=== PATIENT | female | born 1965 | race African-American/Black ===

== ENCOUNTER 2017-01-26 15:00 | Observation (INO) | payer OTHER ==
[~2017-01-26] VITALS: Ht 165.1 cm; Wt 49.9 kg
[2017-01-26 15:38] LABS: BASO % 1 % (0-3); EOS # 0.1 x10^3/uL (0.0-0.7); EOS % 3 % (0-3); HEMATOCRIT 32.6 % (36.0-47.0); HEMOGLOBIN 10.6 g/dL (12.0-15.5); LYMPH # 1.1 x10^3/uL (1.0-4.8); LYMPH % 33 % (24-48); MEAN CORPUSCULAR HEMOGLOBIN 27 pg (25-35); MEAN CORPUSCULAR HGB CONC 33 g/dL (31-37); MEAN CORPUSCULAR VOLUME 82 fL (79-100); MONO # 0.4 x10^3/uL (0.0-1.1); MONO % 10 % (0-9); NEUT # 1.8 x10^3uL (1.8-7.7); NEUT % 53 % (31-73); PLATELET COUNT 135 x10^3/uL (140-400); RED BLOOD COUNT 3.99 x10^6/uL (3.50-5.40); RED CELL DISTRIBUTION WIDTH 13.3 % (11.5-14.5); WHITE BLOOD COUNT 3.4 x10^3/uL (4.0-11.0)
--- NOTE | 2017-01-26 15:47 | EKG ---
[address] [address] Test Date: 2017-01-26 Test Time: 15:31:44 Pat Name: JACINTA QUIGLEY Department: Room: Gender: F [employer]orer [employer]: : 1965 Requested By: VASQUEZ NGUYEN Order Number: [id number] Reading MD: Charly Espana Measurements Intervals [place] Rate: 86 P: 51 NM: 160 QRS: 10 QRSD: 82 T: 53 QT: 376 QTc: 453 Interpretive Statements SINUS RHYTHM ATRIAL PREMATURE COMPLEX(ES) Electronically Signed On 01-30-2017 12:50:34 CDT by Charly Espana
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
[2017-01-26 16:22] LABS: BILIRUBIN,URINE NEG (NEG); CLARITY,URINE CLEAR; COLOR,URINE STRAW; GLUCOSE,URINE NEG (NEG); NITRITE,URINE NEG (NEG); UROBILINOGEN,URINE 0.2 mg/dL (0.2 mg/dL)
[2017-01-26 16:24] LABS: BACTERIA,URINE 0 /HPF (0-FEW); RBC,URINE OCC /HPF (0-2); SQUAMOUS EPITHELIAL CELL,UR MANY /LPF
[2017-01-26 16:25] LABS: U PREG PATIENT NEGATIVE (NEG)
[2017-01-26 16:45] LABS: AMPHETAMINE/METHAMPHETAMINE NEG (NEG); BARBITURATES NEG (NEG); BENZODIAZEPINES POS (NEG); CANNABINOIDS NEG (NEG); COCAINE NEG (NEG); METHADONE NEG (NEG); OPIATES NEG (NEG); PHENCYCLIDINE NEG (NEG)
[2017-01-26] MEDS ORDERED: HALOPERIDOL 1 MG TABLET PO ONE (17:15)
[2017-01-26] MEDS ORDERED: LORazepam 1 MG TABLET PO ONE (17:15)
--- NOTE | 2017-01-26 17:24 | ACF ---
Admission Criteria Forms PSYCHIATRIC DISORDERS Clinical Indications for Inpatient Care (Place 'X' for any and all applicable criteria): Ongoing inpatient care may be needed for ANY ONE of the following(1)(2)(3)(4)(6) (7)(8): [X ]I. Danger to self or others not manageable at lower level of care. [ ]II. Grave disability (eg, inability to perform self care necessary at lower level of care) [ ]III. Agitation or inappropriate behavior interfering with care for primary condition (eg, attempting to discontinue lines or drains prematurely, unable to cooperate with respiratory care) [ ]IV. Severe disability or disorder indicated by ALL of the following: [ ]a) Severe behavioral health disorder-related symptoms or condition indicated by ANY ONE of the following: [ ]i) Severe problem with cognition, memory, judgment, or impulse control [ ]ii) Severe clinical manifestations (eg, hallucinations, delusions, other acute psychotic symptoms, reymundo, extreme agitation or anxiety) [ ]b) Patient management at lower level of care is not feasible until acute intervention or modification is initiated. Extended stay beyond goal length of stay for the primary condition may be indicated when ANY ONE of the following is present: (1)(2)(3)(4): [ ]a) Patient is a danger to self or others and not manageable at lower level of care. [ ]b) Behavior crisis management, including physical or chemical restraints, is required and is not available at a lower level of care. [ ]c) Behavioral symptoms (e.g., agitation, somnolence, inappropriate behavior) are present, and are not manageable at a lower level of care. [ ]d) Patient cannot understand follow-up treatment and crisis plan. [ ]e) Provider and supports are not sufficiently available at lower level of care. [ ]f) Patient cannot participate (e.g., verify absence of plan for harm) and is in needed of monitoring. The original [facility] content created by [employer] has been revised. The portions of the content which have been revised are identified through the use of italic text or in bold, and [facility] [employer] has neither reviewed nor approved the modified material. All other unmodified content is copyright [facility]. Please see references footnoted in the original [facility] edition 2016 Admission Criteria Met?: Pending GUILLERMO NAVARRO January 26, 2017 17:24 VASQUEZ NGUYEN MD Jan 27, 2017 06:28
[2017-01-26 19:25] LABS: CALCIUM 8.9 mg/dL (8.5-10.1); CREATININE 1.9 mg/dL (0.6-1.0); GFR 33.6; POTASSIUM 3.4 mmol/L (3.5-5.1)
[2017-01-26] MEDS ORDERED: IV NORMAL SALINE 1,000ML 1,000 ML IV ONE (20:00)
[2017-01-27] MEDS ORDERED: ACETAMINOPHEN 325 MG TABLET PO PRN (00:30)
[2017-01-27] MEDS: IV NORMAL SALINE 1,000ML 1,000 ML IV SCH ×3 (00:30→16:30)
[2017-01-27] MEDS ORDERED: LORazepam 2 MG/ML VIAL IV PRN (00:30)
[2017-01-27] MEDS ORDERED: ONDANSETRON PF 4 MG/2 ML VIAL. IV PRN (00:30)
[2017-01-27 01:05] VITALS: BP 106/69
--- NOTE | 2017-01-27 01:40 | NUR ---
The patient, JACINTA QUIGLEY, 51 y/o, F admitted by ROSY PERDOMO DO at 0100 to room 125, was given written information regarding hospital policies, unit procedures and contact persons. Constant observation provided. Valuables were checked and vitals taken/stable. Will CTM.
--- NOTE | 2017-01-27 04:14 | NUR ---
Nursing Note Pt resting comfortably in bed at this time with no complaints. Pt has showered since arrival to unit and provided water and snacks. Call light is within reach. Continually monitoring pt.
[2017-01-27 06:05] VITALS: BP 146/84
--- NOTE | 2017-01-27 08:50 | NUR ---
PT PLEASANT AND COOPERATIVE THIS MORNING. PT TOOK SHOWER, ATE BREAKFAST. NO COMPLAINTS OR AGITATION.
[2017-01-27] MEDS: OLANZapine 2.5 MG TABLET PO SCH (09:13)
[2017-01-27 10:35] LABS: CALCIUM 8.7 mg/dL (8.5-10.1); GFR 31.7; MAGNESIUM 1.8 mg/dL (1.8-2.4); POTASSIUM 4.6 mmol/L (3.5-5.1)
[2017-01-27 10:52] VITALS: BP 155/92
--- NOTE | 2017-01-27 11:16 | NUR ---
DR PERDOMO NOTIFIED OF ELEVATED B/P.
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
[2017-01-27] MEDS ORDERED: diphenhydrAMINE 50 MG/ML VIAL IVP PRN (11:30)
[2017-01-27] MEDS ORDERED: OLANZapine IM 10 MG VIAL. IM PRN (11:30)
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
[2017-01-27] MEDS ORDERED: HALOPERIDOL LACT 5 MG/ML VIAL. IM PRN (18:15)
[2017-01-27] MEDS ORDERED: LORazepam 2 MG/ML VIAL IM PRN (18:15)
[2017-01-27 19:00] VITALS: BP 126/83
--- NOTE | 2017-01-27 19:00 | NUR ---
pt in room, she is restless and fidgeting with things in her room. She is quiet. will ctm.
--- NOTE | 2017-01-27 20:00 | NUR ---
pt allowed me to obtain her vital signs, minimally assess her, she still refuses to take her medication (zyprexa). She is pleasant at this time.
--- NOTE | 2017-01-27 20:17 | PDOC ---
Exam Jose Demential Exam: Jose Note: Please also refer to the separate dictated note~for this date of service dictated separately.~Patient seen individually. Discussed the patient with Nursing staff reviewed the chart.~Reviewed interim history and current functioning. Reviewed vital signs,~Labs/ Radiology~and current medications noted below. Continue current treatment with the changes noted in the dictated addendum note Assessment: Vital Signs: Vital Signs Date Time Temp Pulse Resp B/P (MAP) Pulse Ox O2 Delivery O2 Flow Rate FiO2 01/27/17 15:54 Room Air 01/27/17 10:52 98.4 98 18 155/92 (113) 100 I&O Intake and Output 01/27/17 07:00 Intake Total 120 ml Balance 120 ml Intake Oral 120 ml Labs: Laboratory Tests Test 01/27/17 10:20 Sodium Level 144 mmol/L (136-145) Potassium Level 4.6 mmol/L (3.5-5.1) Chloride Level 110 mmol/L (98-107) H Carbon Dioxide Level 25 mmol/L (21-32) Anion Gap 9 (6-14) Blood Urea Nitrogen 20 mg/dL (7-20) Creatinine 2.0 mg/dL (0.6-1.0) H Estimated GFR (Cockcroft-Gault) 31.7 Glucose Level 126 mg/dL (70-99) H Calcium Level 8.7 mg/dL (8.5-10.1) Magnesium Level 1.8 mg/dL (1.8-2.4) Current Medications: Meds: Current Medications Haloperidol (Haldol) 5 mg 1X ONCE PO Last administered on 01/26/17 17:04; Start 01/26/17 at 17:15; Stop 01/26/17 at 17:16; Status DC Lorazepam (Ativan) 1 mg 1X ONCE PO Last administered on 01/26/17 17:04; Start 01/26/17 at 17:15; Stop 01/26/17 at 17:16; Status DC Sodium Chloride 1,000 ml @ 1,000 mls/hr 1X ONCE IV Last administered on 20:00; Start 01/26/17 at 20:00; Stop 01/26/17 at 20:59; Status DC Ondansetron HCl (Zofran) 4 mg PRN Q4HRS PRN IV NAUSEA/VOMITING; Start 01/27/17 at 00:30; Stop 01/28/17 at 00:29 Sodium Chloride 1,000 ml @ 125 mls/hr Q8H IV ; Start 01/27/17 at 00:30; Stop 01/28/17 at 00:29 Acetaminophen (Tylenol) 650 mg PRN Q4HRS PRN PO FEVER; Start 01/27/17 at 00:30; Stop 01/28/17 at 00:29 Olanzapine (ZyPREXA) 5 mg DAILY10 PO ; Start 01/27/17 at 10:00 Lorazepam (Ativan) 1 mg PRN Q4HRS PRN IV ANXIETY / AGITATION; Start 01/27/17 at 00:30; Stop 01/27/17 at 18:26; Status DC Olanzapine (ZyPREXA IM) 5 mg PRN DAILY PRN IM AGITATION; Start 01/27/17 at 11:30 Diphenhydramine HCl (Benadryl) 25 mg PRN Q6HRS PRN IVP ITCHING; Start 01/27/17 at 11:30 Lorazepam (Ativan) 1 mg PRN Q4HRS PRN IM ANXIETY / AGITATION; Start 01/27/17 at 18:15 Haloperidol Lactate (Haldol) 5 mg PRN Q4HRS PRN IM agitation; Start 01/27/17 at 18:15 ANGELO ESTES MD Jan 27, 2017 20:17
--- NOTE | 2017-01-28 | NUR ---
pt was sleeping for a couple hours, she is awake now, she is refusing vital signs to be taking, she is restless and fidgeting in her bed.
--- NOTE | 2017-01-28 04:00 | NUR ---
pt is still refusing vitals to be taken. she is walking around her room, fidgeting with items. she does request fresh water occasionally.
--- NOTE | 2017-01-28 06:00 | NUR ---
pt is awake, shaking while sitting up in bed, pt is refusing lab draws, vital signs. she gets agitated and yells " I AM FINE, I DO NOT NEED LAB DRAWS"
[2017-01-28] MEDS: risperiDONE ORAL 1 MG/ML 30ml BOTTLE. SL SCH ×2 (07:35→09:13)
[2017-01-28] MEDS: OLANZapine 2.5 MG TABLET PO SCH (10:19)
--- NOTE | 2017-01-28 15:28 | NUR ---
Pt discharged to [facility]. Pt sent with [facility]. Chart copied and sent with pt. IV removed prior to discharge.
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
--- NOTE | 2017-01-29 01:04 | PN ---
DATE: 01/28/2017 SUBJECTIVE: I was asked to have labs drawn, but still she did see the psychiatrist last night and he prescribed some Risperdal; however, she refused to take it. We are still awaiting involuntary placement at [place] because of homicidal gestures and delusional, psychotic behavior. OBJECTIVE: VITAL SIGNS: Blood pressure 126/83, pulse 88, temperature 98.3, pulse ox 99% on room air. Currently, the patient is eating her breakfast and is calm and cooperative; however, still refuses to have her lab done due to the threats made to this person yesterday, did not go in the room, but observed her from the door. ASSESSMENT: 1. Psychotic disorder. 2. Bipolar disorder. 3. Poor social situation. 4. Insomnia. 5. Homicidal ideation. 6. Elevated creatinine, need to repeat, do not know what her baseline is. PLAN: Try labs again and case assistant will be inquiring as to her status on the list for admission at [facility] in [place]. ROSY PERDOMO DO DR: CHALO/hira JOB#: [id number] / [id number]
== END 2017-01-28 15:40 ==
LOC: ER 15:00 → INTOOBSV 01-27 00:09 → 1 SOUTH 01-27 00:09
PROVIDERS: ADMIT Family Medicine; ATTEND Family Medicine
DX: F25.0 Schizoaffective disorder, bipolar type (principal); F20.5 Residual schizophrenia; E86.0 Dehydration; I10 Essential (primary) hypertension; E11.9 Type 2 diabetes mellitus without complications; D72.819 Decreased white blood cell count, unspecified; G47.00 Insomnia, unspecified; R45.850 Homicidal ideations
CPT/HCPCS: 36415; 80048; 81001; 81025; 83735; 84484; 85027; 93005; 96360; 99285; G0378; G0481; G0379; J7030